=== PATIENT | male | born 1970 | race Caucasian/White ===

== ENCOUNTER → 2021-12-01 | Outpatient (CLI) | LOC: M SOG 08:04 | PROVIDERS: ATTEND Orthopaedic Surgery Adult Reconstructive Orthopaedic Surgery | DX: M25.562 Pain in left knee (principal) ==

== ENCOUNTER 2023-01-31 08:19 | Day surgery (SDC) | payer OTHER ==
[~2023-01-31] VITALS: Ht 182.9 cm; Wt 102.3 kg
[~2023-01-31 08:19] MED LIST: LIDOCAINE 2% 100MG/5ML SDV (FOR ANES.) As Ordered ONE; NS 1,000 ML IV ONE; propofoL 200 MG/20 ML VIAL As Ordered ONE
[2023-01-31 09:36] VITALS: TEMP 97.7
[2023-01-31 09:54] VITALS: BP 106/72; O2SAT 97
== END 2023-01-31 10:07 | disposition home or self-care (01) ==
LOC: M OPP 08:19
PROVIDERS: ATTEND Surgery
DX: Z12.11 Encounter for screening for malignant neoplasm of colon (principal); Z80.0 Family history of malignant neoplasm of digestive organs; D12.6 Benign neoplasm of colon, unspecified; G47.33 Obstructive sleep apnea (adult) (pediatric); Z99.89 Dependence on other enabling machines and devices